=== PATIENT | female | born 2000 | race Caucasian/White ===

== ENCOUNTER 2024-07-22 23:47 | Emergency (ER) | payer BC, SELFPAY ==
[2024-07-22 23:56] VITALS: BP 164/114; PULSE 114; RESP 18; TEMP 37.6; O2SAT 99; BMI 29.7
--- NOTE | 2024-07-22 23:56 | CT_ITS ---
PROCEDURE INFORMATION: Exam: CT Head Without Contrast Exam date and time: 07/23/2024 1:12 AM Age: 23 years old Clinical indication: Injury or trauma; Fall; Hit back of head; Additional info: Fall yesterday struck head has vomiting TECHNIQUE: Imaging protocol: Computed tomography of the head without contrast. Total images: 542 Radiation optimization: All CT scans at this facility use at least one of these dose optimization techniques: automated exposure control; mA and/or kV adjustment per patient size (includes targeted exams where dose is matched to clinical indication); or iterative reconstruction. COMPARISON: No relevant prior studies available. FINDINGS: Brain: Normal. No hemorrhage. Unremarkable white matter. No mass effect. The colby-white interface is maintained. Cerebral ventricles: No ventriculomegaly. Paranasal sinuses: Minor mucosal thickening left ethmoid air cells and left maxillary sinus. No air-fluid levels. Mastoid air cells: Visualized mastoid air cells are well aerated. Auditory system: Filling defect right external auditory canal compatible with impacted cerumen. Bones: Unremarkable. No acute fracture. Soft tissues: Unremarkable. IMPRESSION: No acute intracranial process.
[2024-07-23] MEDS: ACETAMINOPHEN 500MG TAB 1000 MG PO (00:31)
[2024-07-23] MEDS: ONDANSETRON 4MG/2ML VIAL 4 MG IV (00:31)
[2024-07-23] MEDS: LACTATED RINGERS 1000ML 1,000 ML 999 ML IV (00:31)
[2024-07-23 00:35] LABS: Adenovirus,PCR Not Detected (NotDetected); Bordetella Pertussis Not Detected (NotDetected); Chlamydophila Pneumoniae, PCR Not Detected (NotDetected); Coronavirus 19, PCR Not Detected (NotDetected); Coronavirus 229E Not Detected (NotDetected); Coronavirus NL63 Not Detected (NotDetected); Coronavirus OC43 Not Detected (NotDetected); Coronovirus HKU1,PCR Not Detected (NotDetected); Human Metapneumovirus Not Detected (NotDetected); Influenza A, PCR Not Detected (NotDetected); Influenza AH1, 2009 Not Detected (NotDetected); Influenza AH1, PCR Not Detected (NotDetected); Influenza AH3,PCR Not Detected (NotDetected); Influenza B, PCR Not Detected (NotDetected); Mycoplasma Pneumoniae, PCR Not Detected (NotDetected); Parainfluenza 1, PCR Not Detected (NotDetected); Parainfluenza 2, PCR Not Detected (NotDetected); Parainfluenza 4, PCR Not Detected (NotDetected); Respiratory Syncytial Virus Not Detected (NotDetected); Rhinovirus/Enterovirus Not Detected (NotDetected)
--- NOTE | 2024-07-23 00:35 | [facility].EDGENADL ---
Discharge Plan Disposition Patient Disposition: Home, Self-Care Condition: Fair Prescriptions Prescriptions: New promethazine 12.5 mg tablet 12.5 mg PO TID PRN (Reason: allergy symptoms) Qty: 10 0RF Rx Instructions: 3 doses during day; last dose no later than 4 hr before bedtime ondansetron 4 mg tablet,disintegrating 4 mg PO Q6H PRN (Reason: nausea and vomiting) Qty: 10 0RF Referrals Follow up/Referrals: Provider,Referral, MD [Primary Care Provider, Medical] - See instructions Activity Restrictions/Add. Instructions Additional Instructions/Restrictions: You were evaluated in the ER and are appropriate for discharge at this time. Drink plenty of water, Pedialyte, Gatorade. Take the prescribed Zofran (ondansetron) or Phenergan (promethazine) as directed for nausea and vomiting. Take 1 of these medications or the other, NOT both. Phenergan can make you sleepy, do not drive or operate machinery after taking it. Take Tylenol and ibuprofen if needed for pain. Rest and recover. If you have worsening headache, nausea, or other concussion symptoms, immediately stop what you are doing and rest and recover. You should have very slow, gradual return back to normal daily activities and should only progress your activity if you are not having concussion symptoms. Make an appointment with your primary care doctor for reevaluation in 2 to 3 days. Return to the ER with any new, worsening, or otherwise concerning symptoms. Clinical Impressions Clinical Impression: Concussion without loss of consciousness, Vomiting, Fever Instructions Patient Instructions: DI for Concussion Print Language Print Language: Samoan Discharge ED Provider: Jamar Stone Adult HPI General Chief complaint: Head Injury Stated complaint: fall, head injury Time Seen by Provider: 07/22/24 23:56 Mode of Arrival: Ambulatory Source of Information: Patient Description of Symptoms (Recalled from ER Triage Doc. by RN): Pt to ED with c/o falling yesterday and hitting the back of her head. Denies LOC. Pt reports she has had a headache and vomiting since. Pt also reports fever, bodyaches, ear pain. Pt also reports hx of HTN, hasn't taken medication in 1 month. History of Present Illness HPI narrative: 23-year-old female presents to the ER with multiple complaints. She states yesterday she fell and struck the back of her head without loss of consciousness. She does not take any blood thinners. Patient states since that time she has had headache in the back of her head. She states today she has had fever, body aches, ear pain, cough, congestion, and vomiting. She also states she started her period today. She states the only abdominal pain that she has at this time is lower abdominal cramping consistent with her normal menstrual period. She states fever has been up to 101, she has not been able to tolerate anything by mouth and has not been drinking much water and states the ibuprofen she tried to take would not stay down. Patient has a history of high blood pressure and states she is not compliant with her medications but is supposed to schedule follow-up. She has no vision changes, numbness, tingling, or weakness. She was independently ambulatory into the ER. She states her upper neck is sore but while providing history has full range of motion of the neck. No other injuries or complaints. Related Data Previous Rx's ?Medication ?Instructions ?Recorded ondansetron 4 mg disintegrating 4 mg PO Q6H PRN nausea and 07/23/24 tablet vomiting #10 tabs promethazine 12.5 mg tablet 12.5 mg PO TID PRN allergy 07/23/24 symptoms #10 tabs Allergies Allergy/AdvReac Type Severity Reaction Status Date / Time oxycodone Allergy Anaphylaxis Verified 07/23/24 00:07 [facility] Disclaimer: The information contained in this section may have been updated after the patient was seen, as this information can be updated by other users. Social History Smoking Status: Current every day smoker alcohol intake: never current occupational status: other Travel in the last 8 weeks?: None ROS Obtained: Yes Systems reviewed as appropriate & no additional complaints except as documented per hPI Physical Exam General General appearance: alert Comment: anxious and tearful but nontoxic appearing Head Head exam: atraumatic and normocephalic Eye Eye exam: Present PERRL, EOMI and other (No raccoon eyes); Absent nystagmus ENT ENT exam: Present mucous membranes moist, TM's normal bilaterally and other (No Sullivan sign) Neck Neck exam: Present normal inspection, full ROM and other (Neck is generally sore but no focal tenderness, no deformity or step-off); Absent tenderness Chest Chest inspection: Present symmetric chest wall rise Respiratory Respiratory exam: Present normal lung sounds bilaterally; Absent respiratory distress, wheezes or stridor Cardiovascular Cardiovascular exam: Present regular rate and normal rhythm Abdominal Exam Abdominal exam: Present soft; Absent distention, tenderness, guarding or rebound Extremities Exam Extremities exam: Present full ROM Neurological Exam Neurological exam: Present alert, oriented X3, normal gait and other (No cerebellar symptoms, GCS 15); Absent motor sensory deficit Psychiatric Psychiatric exam: Present normal affect and normal mood Skin Skin exam: Present warm and dry Medical Decision Making Medical Records Screening: Per USPSTF and CDC recommendations, given the prevalence of disease in our region, it is our hospital?s policy to screen for HIV and viral Hepatitis for all patients aged 18 and over and those with ongoing risk factors. [place] Inquiry Pt receiving controlled substance: No Vital Signs: 07/22/24 23:56 07/23/24 02:23 Temperature 99.6 F Temperature Source Oral Pulse Rate [Left Radial] 114 H Respiratory Rate 18 Blood Pressure 129/88 Blood Pressure [Right Arm] 164/114 H Blood Pressure Mean 101 Blood Pressure Mean [Right Arm] 130 Blood Pressure Source [Right Arm] Automatic Cuff Blood Pressure Position [Right Arm] Sitting 02 Sat by Pulse Oximetry 99 Oxygen Delivery Method Room Air Lab Data Lab Results 07/23/24 00:20: Urine Color Yellow, Urine Appearance Cloudy, Urine pH 8.0, Ur Specific [place] 1.015, Urine Protein Trace, Urine Glucose (UA) Negative, Urine Ketones Negative, Urine Blood 3+ A, Urine Nitrate Negative, Urine Bilirubin Negative, Urine Urobilinogen 1.0, Ur Leukocyte Esterase 1+ A, Urine RBC Tntc, Urine HCG, Qual Negative 07/23/24 00:52: WBC 5.9, RBC 5.09, Hgb 15.5, Hct 45.5, MCV 89.4, MCH 30.5, MCHC 34.1, RDW 11.9, Plt Count 249, MPV 9.3, Neut % (Auto) 81.3 H, Lymph % (Auto) 9.2 L, [place] % (Auto) 8.3, Eos % (Auto) 0.5, Baso % (Auto) 0.5, Neut # (Auto) 4.8, Lymph # (Auto) 0.5 L, [place] # (Auto) 0.5, Eos # (Auto) 0.0, Baso # (Auto) 0.0, Total Counted 100, Neutrophils % (Manual) 86 H, Lymphocytes % (Manual) 7 L, Monocytes % (Manual) 7, Platelet Estimate Not Reportable, RBC Morphology Not Reportable, Sodium 135 L, Potassium 4.3, Chloride 108 H, Carbon Dioxide 21 L, Anion Gap 10.3, BUN 5 L, Creatinine 0.70, Estimated Creat Clear 169, Estimated GFR 103, Est GFR ( Amer) 124, Glucose 113 H, Calcium 9.6, Total Bilirubin 0.9, AST 25, ALT 16, Alkaline Phosphatase 96, Total Protein 7.5, Albumin 4.5, Globulin 3.0, Albumin/Globulin Ratio 1.5 07/23/24 00:52 07/23/24 00:52 Orders (Tests/Meds): ED MEDICATIONS Discontinued Medications Generic Name Dose Route Start Last Admin Trade Name Freq PRN Reason Stop Dose Admin Acetaminophen 1,000 mg 07/22/24 23:56 07/23/24 00:31 Acetaminophen 500mg Tab PO 07/22/24 23:57 1,000 mg ONCE ONE Administration Acetaminophen 1,000 mg 07/23/24 01:24 07/23/24 01:33 Acetaminophen 1,000mg/100ml Vial IV 07/23/24 01:25 1,000 mg ONCE ONE Administration Lactated Ringer's 1,000 mls @ 999 mls/hr 07/22/24 23:56 07/23/24 00:31 Lactated Ringer's 1000 Ml Bag IV 07/23/24 00:56 999 mls/hr .Q1H1M ONE Administration Ketorolac Tromethamine 30 mg 07/23/24 01:24 07/23/24 01:34 Ketorolac 30mg/Ml Vial IV 07/23/24 01:25 30 mg ONCE ONE Administration Ondansetron HCl 4 mg 07/22/24 23:56 07/23/24 00:31 Ondansetron 4mg/2ml Vial IV 07/22/24 23:57 4 mg ONCE ONE Administration Promethazine HCl 12.5 mg 07/23/24 01:24 07/23/24 01:33 Promethazine Hcl 25mg/Ml 1ml Vial IV 07/23/24 01:25 12.5 mg ONCE ONE Administration Sodium Chloride 25 ml 07/23/24 01:24 Sodium Chloride 0.9% 25ml Bag IV 07/23/24 01:25 ONCE ONE ORDERS Category Date Time Status CT head/brain wo con Stat Cat Scan 07/22/24 23:56 Completed CBC w/Auto Diff [Complete Blood Count Auto Diff] Stat Lab 07/22/24 23:56 Completed CMP [Comprehensive Metabolic Panel] Stat Lab 07/22/24 23:56 Completed Full Resp Panel w/COVID ([facility]) Routine Lab 07/23/24 00:30 Received Urinalysis and Microscopic Stat Lab 07/23/24 00:20 Completed Urine , HCG Qual. Stat Lab 07/23/24 00:20 Completed Urine Culture Stat Micro 07/23/24 00:20 Received Medical Decision Narrative: In summary, this 23-year-old female presents to the emergency department today with headache, fever, cough, congestion, nausea, vomiting, ear pain in the setting of a fall without LOC yesterday. On initial evaluation patient is GCS 15, hemodynamically stable, afebrile, tearful and anxious but nontoxic-appearing, cardiopulmonary exam benign, no neurologic deficits, no evidence of basilar skull fracture, patient has diffuse discomfort in the neck but no areas of tenderness, deformity, or step-off, no neurodeficits, abdominal exam benign, tympanic membrane's normal. Differential diagnosis includes but is not limited to concussion, muscle spasm, viral syndrome, otitis media and otitis externa were considered but not identified on exam, I considered the possibility of intracranial bleed, skull fracture, however since patient is 24 hours post injury, independently ambulatory into the ER with GCS 15 and no neurologic deficits I considered this very unlikely and discussed this with her but she is extremely anxious about it so I will obtain a head CT. By [place] C-spine rules patient is low risk for C-spine injury and C-spine can be cleared clinically. Serum labs and head CT have been ordered for workup. Patient received IV fluids, Zofran, Tylenol for treatment. Labs personally reviewed demonstrate No leukocytosis or anemia, platelets normal, CMP nonactionable, UA with blood consistent with the patient currently being on her menstrual period but negative nitrites and only small leukocyte esterase. Without symptoms of urinary tract infection, I do not believe she has UTI. Will not treat for UTI at this time. hCG negative. CT head personally interpreted does not demonstrate any acute intracranial abnormality, see radiology read for final interpretation. Patient had emesis of Tylenol after receiving her Zofran. She then received IV Phenergan, IV Toradol, IV Tylenol. On reassessment she is now resting comfortably, tolerating oral intake, she is appropriate for discharge at this time. I counseled and educated the patient on concussion symptoms as well as viral symptoms, I provided prescription for Zofran and Phenergan for outpatient management of symptoms. She was also given instructions on symptomatic monitoring and management, follow-up instructions, and strict return precautions for the ER. She indicated understanding and the patient was discharged in stable condition. Critical Care Critical Care Time Critical Care Time: No
--- NOTE | 2024-07-23 00:55 | PC.NURSE ---
Labs drawn and sent
[2024-07-23 00:59] LABS: Microscopic, Urine URINE MICROSCOPIC (MICROSCOPIC)
[2024-07-23 01:01] LABS: Appearance,Urine CLOUDY (Clear); Bilirubin,Urine Negative (Negative); Blood, Urine 3+ (Negative); Color,Urine YELLOW (Yellow); Glucose,Urine (UA) Negative (Negative); Ketones,Urine Negative (Negative); Leukocyte Esterase,Urine 1+ (Negative); Nitrate,Urine Negative (Negative); Protein,Urine TRACE (Negative); Specific Gravity, Urine 1.015 (1.005-1.030)
[2024-07-23 01:03] LABS: Basophils % 0.5 % (0.1-2.0); Eosinophils % 0.5 % (0.1-12.0); Hematocrit 45.5 % (37.0-47.0); Hemoglobin 15.5 g/dL (12.2-16.2); Immature Granulocytes # 0.01 10^3uL; Immature Granulocytes % 0.2 %; Lymphocytes # 0.5 K/mm3 (0.7-4.5); Lymphocytes % 9.2 % (10-50); Mean Corpuscular HGB Conc 34.1 g/dL (31.8-35.4); Mean Corpuscular Hemoglobin 30.5 pg (27.0-31.2); Mean Corpuscular Volume 89.4 fl (81-99); Mean Platelet Volume 9.3 fl (7.4-10.4); Monocytes # 0.5 K/mm3 (0.1-1.0); Monocytes % 8.3 % (1.7-9.3); Neutrophils # 4.8 K/mm3 (1.8-7.8); Neutrophils % 81.3 % (37.0-80.0); Nucleated Red Blood Cells # 0 10^3/uL; Nucleated Red Blood Cells % 0 %; Platelet Count 249 K/mm3 (142-424); Red Blood Count 5.09 M/mm3 (4.20-5.40); Red Cell Distribution Width 11.9 % (11.5-17.5); Red Cell Distribution Width-SD 38.8 fL; White Blood Count 5.9 K/mm3 (4.8-10.8)
[2024-07-23 01:05] LABS: MANUAL DIFFERENTIAL MANUAL DIFFERENTIAL (MANUAL DIFF)
[2024-07-23 01:05] LABS: Urine Pregnancy, HCG Qual. Negative (Negative)
[2024-07-23 01:08] LABS: RBC,Urine TNTC #/hpf (0-3)
--- NOTE | 2024-07-23 01:10 | PC.NURSE ---
Pt in ct scan
[2024-07-23 01:22] LABS: Lymphocytes % 7 % (10-50); Monocytes % 7 % (2-9); Neutrophils % 86 % (42-76); Total Cells Counted 100
--- NOTE | 2024-07-23 01:26 | PC.NURSE ---
Pt vomited Tylenol tablets aware new orders received
[2024-07-23] MEDS: PROMETHAZINE HCL 25MG/ML 1ML VIAL 12.5 MG IV (01:33)
[2024-07-23] MEDS: ACETAMINOPHEN 1,000MG/100ML VIAL 1000 MG IV (01:33)
[2024-07-23] MEDS: KETOROLAC 30MG/ML VIAL 30 MG IV (01:34)
[2024-07-23 01:37] LABS: Alanine Aminotransferase 16 U/L (12-78); Albumin Level 4.5 g/dl (3.5-5.0); Albumin/Globulin Ratio 1.5 (1.1-1.8); Alkaline Phosphatase 96 U/L (38-126); Anion Gap 10.3 mEq/L (5-15); Aspartate Amino Transferase 25 U/L (14-36); Bilirubin,Total 0.9 mg/dl (0.2-1.3); Blood Urea Nitrogen 5 mg/dl (7-17); Calcium 9.6 mg/dl (8.4-10.2); Carbon Dioxide 21 mmol/L (22.0-30.0); Chloride 108 mmol/L (98-107); Creatinine Clearance Estimated 169 mL/min (50-200); Estimated Glomerular Filt Rate 103 ml/min (>60); GFR (African American) 124 ML/MIN (>60); Glucose 113 mg/dl (74-100); Potassium 4.3 mmoL/L (3.5-5.1); Sodium 135 mmol/L (136-145); Total Protein,Serum 7.5 g/dl (6.3-8.2)
--- NOTE | 2024-07-23 01:40 | PC.NURSE ---
Pain 8 on 1-10 scale Pt medicated for pain
[2024-07-23 02:23] VITALS: BP 129/88
[2024-07-23 02:27] VITALS: BP 129/88; PULSE 88; RESP 16; TEMP 37.2; O2SAT 98
[2024-07-23 04:13] LABS: Parainfluenza 3, PCR Detected (NotDetected)
--- NOTE | 2024-07-25 09:19 | PC.NURSE ---
Urine culture results reviewed by Dr. Torres. Antibiotics prescribed. Attempted to call patient, no answer, left message to call back.
--- NOTE | 2024-07-29 13:05 | PC.NURSE ---
URINE CULTURE DISCUSSED WITH DR. SHEA, NO NEW ORDERS
== END 2024-07-23 02:32 | disposition home or self-care (01) ==
PROVIDERS: Emergency Provider Emergency Medicine
DX: S06.0X0A Concussion without loss of consciousness, initial encounter (principal); R11.2 Nausea with vomiting, unspecified; R50.9 Fever, unspecified; F17.210 Nicotine dependence, cigarettes, uncomplicated; W19.XXXA Unspecified fall, initial encounter
CPT/HCPCS: 0223U; 70450; 80053; 81001; 81025; 85007; 85025; 85027; 87086; 87088; 87186; 87633; 96361; 96374; 96375; 99285; J0131; J1885; J2405; J2550; J7120